=== PATIENT | female | born 1930 | race Caucasian/White ===

== ENCOUNTER 2016-10-29 15:16 | Emergency (ER) | payer OTHER ==
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
[~2016-10-29 15:16] MED LIST: ASPIRIN81 M1 PO; ATENOLOL PO; CALCIUM + D 6001 TA1 PO; DYAZIDE 37.5/251 CAP PO; DYAZIDE 371 CAP 37.5 PO; FISH OIL SOFTGE1 CA1 PO; MULTIPLE VITAMI1 T11 PO; PERCOCET PO; STOOL SOFTENER1 EAC1 PO; VITAMIN C250 MG PO; VITAMIN D1000 UNI1 PO
[2017-04-17] MEDS ORDERED: DYAZIDE 37.5-21 EACH (09:18)
[2017-04-17] MEDS ORDERED: MULTI-DAY VITA1 EACH (09:18)
[2017-04-17] MEDS ORDERED: CALCIUM 600 +1 EAC5 PO (09:18)
[2017-04-17] MEDS ORDERED: VITAMIN B6200 MG (09:19)
[2017-04-17] MEDS ORDERED: STOOL SOFTENER100 M1 PO (09:19)
== END 2016-10-29 15:39 | disposition home or self-care (01) ==
LOC: SED 15:16
DX: S20.219A Contusion of unspecified front wall of thorax, initial encounter (principal); M19.90 Unspecified osteoarthritis, unspecified site; Z90.710 Acquired absence of both cervix and uterus; V43.52XA Car driver injured in collision with other type car in traffic accident, initial encounter; Y92.410 Unspecified street and highway as the place of occurrence of the external cause
CPT/HCPCS: 71020; 99283